=== PATIENT | female | born 1980 | race Caucasian/White ===

== ENCOUNTER 2017-01-29 21:45 | Emergency (ER) | payer OTHER ==
[2017-01-29 22:20] LABS: SPECIFIC GRAVITY 1.025 (1.001-1.030); URINE BILIRUBIN NEGATIVE (NEGATIVE); URINE BLOOD NEGATIVE (NEGATIVE); URINE GLUCOSE (UA) NEGATIVE (NEGATIVE); URINE LEUKOCYTE ESTERASE NEGATIVE (NEGATIVE); URINE NITRITE NEGATIVE (NEGATIVE); URINE PROTEIN NEGATIVE (NEGATIVE); URINE UROBILINOGEN NORMAL (0-1 mg/dl)
[2017-01-29 22:21] LABS: URINE APPEARANCE CLEAR; URINE COLOR YELLOW
[2017-01-29 22:22] LABS: HCG,QUALITATIVE URINE NEGATIVE
--- NOTE | 2017-01-29 23:12 | CT ---
JACQUELINE SCHREIBER Noncontrast CT abdomen and Pelvis COMPARISON:None CLINICAL HISTORY:Abdominal pain for one week PROCEDURE: Helical CT using multidetector technique was applied to the abdomen and pelvis. No contrast was given per ordering physician. Sagittal, axial and coronal images are reviewed. Findings CT abdomen (noncontrast): Lung bases are clear. Heart is nonenlarged. There is no pericardial effusion. Noncontrast images of the liver, pancreas, spleen, adrenal glands and right kidney are within normal limits. The posterior lateral margin of the left kidney, there is a 14 mm indeterminate lesion which requires ultrasound follow-up. There is no calculus or hydronephrosis. Aorta, IVC and portal vein are within normal limits. The gallbladder surgically absent. Stomach, small bowel and colon are within normal limits. There are several subcentimeter reactive lymph nodes within the mesentery and in the retroperitoneum. There is no free air, free fluid or abscess. Degenerative disc disease is noted anteriorly at several levels at the thoracolumbar junction. CT pelvis (noncontrast): The bladder is mildly thick walled which may be due to underdistention. Cystitis is not excluded. Distal ureters are normal. Uterus is normal size and to the left. Ovaries are symmetric. Ovary and vein calcification is identified. Venous vascular calcifications in the pelvis noted as well. Small bowel colon and appendix are normal. There is no free air, free fluid or suspicious adenopathy. IMPRESSION: 1. No genitourinary calcification or obstruction 2. 14 mm exophytic nodule off of the posterior lateral margin of the left kidney. Nonemergent ultrasound follow-up is recommended. 3. Normal appendix. There is no bowel obstruction. 4. Mild bladder wall thickening which may be due to underdistention. Cystitis is not excluded. Correlate clinically. 5. Prior cholecystectomy Note:The above report was uploaded to [facility]'s electronic medical records system at 2308 hours.
[2017-01-29] MEDS ORDERED: KETOROLAC TROMETHAMINE 60 MG/2 ML VIAL ONE (23:14)
[2017-01-31 14:49] LABS: CHLAMYDIA BD Negative (Negative); N.GONORRHOEAE BD Negative (Negative); SOURCE Urine (())
== END 2017-01-29 23:33 | disposition home or self-care (01) ==
LOC: ED 21:45
DX: K59.00 Constipation, unspecified (principal); R10.31 Right lower quadrant pain
CPT/HCPCS: 87491; 87591; 81025; 81003; 74176; 99283 ×2; 96372; J1885